=== PATIENT | female | born 1995 | race Caucasian/White ===

== ENCOUNTER 2019-05-07 18:49 | Outpatient (CLI) | payer OTHER ==
--- NOTE | 2019-05-07 20:51 | ULT ---
TRANSVAGINAL PELVIC ULTRASOUND WITH SANDERS SCALE, COLOR FLOW, AND SPECTRAL DOPPLER IMAGIN05/07/19 HISTORY: 23-year-old female with pelvic pain, vaginal bleeding. FINDINGS: The uterus measures 8.1 x 5.6 x 4.1 cm without focal mass or endometrial fluid. No intrauterine gesta tional sac is seen. The right ovary measures 3.6 x 1.6 x 1.8 cm and the left ovary measures 3.6 x 2.3 x 2 cm. No adnexal mass is seen. Flow is demonstrated to both ovaries. There is free fluid in the cul-de-sac. Endometriu m measures 5 mm in thickness. IMPRESSION: Free fluid in the cul-de-sac, otherwise unremarkable exam. POS: [facility]ITA
== END 2019-05-07 18:50 | disposition home or self-care (01) ==
LOC: ERS 18:49 → ULT 18:49 → EDSTATUS 19:01
DX: N93.9 Abnormal uterine and vaginal bleeding, unspecified (principal); R10.2 Pelvic and perineal pain